=== PATIENT | male | born 1945 | race Caucasian/White ===

== ENCOUNTER → 2017-01-13 | Outpatient (CLI) | payer MEDICARE, BC ==
[~2017-01-13] MED LIST: AMAR2TAB PO; ASPI81 PO; B-COCAP9 PO; GABA300C3 PO; METF-324 PO; ROBA500T PO; VITA-13 PO; ZANA4CAP PO
--- NOTE | 2017-01-16 11:08 | CARDEX ---
CARDIOPULMONARY EXERCISE REPORT Mr. Pineda performed a maximal pulmonary stress test utilizing a step-exercise protocol and monitoring several cardiopulmonary parameters including gas exchange. His overall aerobic capacity is mild to moderately reduced at about 65%. He did develop dyspnea but his chief complaint was leg fatigue and discomfort. He experienced no chest pain or light-headedness. His pulmonary response was mildly abnormal. His O2 saturations ranged from 91% to 93% which for someone with normal lung function is a little low. He did not exhaust his respiratory reserve however, and at the end of exercise his breathing reserve was still 44%. His respiratory rate was rapid though rising from 20 bpm to 56 bpm. The ventilation perfusion ratio at peak exercise was slightly abnormal suggesting some degree of ventilation perfusion mis-matching. The pulmonary vascular capacitance was normal. His cardiac response was characterized by a rapid rise in heart rate to a peak of 97% and this was probably the limiting factor. He had achieved his near maximum heart rate at 60% of his aerobic capacity. His peak O2 pulse, an indirect indicator of stroke volume, was also mildly reduced at 76%. His blood pressure response was normal. No arrhythmia was noted. He had no chest pain. The end-tidal C02 response was at the lower limit of normal. IMPRESSION: In summary, Mr. Pineda does have a mild to slightly moderate reduction in aerobic capacity at about 65%. He experienced significant leg fatigue and some discomfort at the end of exercise and mild to moderate dyspnea. The limiting factor here appears to be cardiovascular in that he achieved 97% of his predicted maximum heart rate but whether this is related to underlying cardiac disease or de-conditioning cannot be determined on the basis of this single study. He has apparently had a previous thorough cardiovascular evaluation which was negative which would suggest it may be due to de-conditioning or, in light of the extreme leg fatigue; there may be a neuromuscular component or a peripheral vascular component. The only significant pulmonary abnormality was lower than expected saturation but it did not drop below 90%. Clinical correlation is required. Garrison ENGLISH M.D. lt 01/16/17
== END ==
LOC: HRSP 13:18
PROVIDERS: ATTEND Internal Medicine
DX: R06.02 Shortness of breath (principal)
CPT/HCPCS: 94621

== ENCOUNTER → 2017-03-17 | Day surgery (SDC) | payer MEDICARE, BC ==
[~2017-03-17] MED LIST changes: +ACETAMINOPHEN/HYDROcodone 325 MG/5 MG TAB ONE; +BUPIVACAINE HCL PF 0.25% 30 ML VIAL ONE; +BUPIVACAINE HCL PF 0.75% 30 ML VIAL ONE; +LACTATED RINGER'S 1000 ML INJ 1,000 ML ONE; +LIDOCAINE 1.5%/EPINEPHrine 1:200,000 PF SOLN 30 ML AMP ONE; +MEPERIDINE HCL 50 MG/ML VIAL ONE; +MIDAZOLAM HCL 5 MG/ML VIAL (1 ML) ONE; +MORPHINE SULFATE 4 MG/ML INJ ONE; +ONDANSETRON HCL 4 MG/2 ML VIAL IV PUSH ONE; +PROPOFOL 200 MG/20 ML AMP IV ONE; +ceFAZolin INJ 1,000 MG VIAL ONE
--- NOTE | 2017-03-17 23:11 | PD.OP ---
cc: Aldo Little Jr., MD Operative Report Date of Surgery: Mar 17, 2017 Preoperative Diagnosis: left 5th metacarpal base fracture Postoperative Diagnosis: same Procedure: closed recduction and pinning left 5th metacarpal base Surgeon: Aldo Little Fire Extinguisher Tester(s): staff Resident Surgeon: none Operation and Findings: Patient was seen and evaluated preoperatively and found to have a RIGHT displaced impacted intra-articular fracture base of the fifth metacarpal. Informed consent was obtained after detailed discussion of risk and benefits including bleeding, infection, injury to arteries, nerves, and blood vessels, weakness and numbness of hand, and tendon rupture. Informed consent was obtained. Patient received IV antibiotics prior to incision. Timeout procedure was performed. Operative extremity was prepped with alcohol followed by Hibiclens and draped usual sterile fashion. A longitudinal dorsal incision overlying the fifth metacarpal shaft was utilized. Dissection taken down to the level of the CMC joint while taking care not to injure the neurovascular bundle. The fracture site was now visualized. Traction was applied. The larger Fracture fragments was manipulated to achieve excellent reduction. The fragment was still too small for screw fixation. Bone clamps were used to hold provisional fixation. Fluoroscopy confirmed appropriate alignment of fracture. A 4.5 K wire was used distally in the shaft of the fourth and fifth metacarpal to maintain traction and reduction. Another 4.5 K wire was used to reduce the main dorsal ulna fracture fragment. Fluoroscopy confirmed appropriate alignment of fracture with well-placed hardware. The wound was thoroughly irrigated with sterile saline. Subcutaneous tissue was closed with 3-0 Vicryl and skin was closed with 3-0 nylon. Sterile dressings were applied with Xeroform, 4 x 4, soft roll, and a well padded splint. Patient was awakened and transferred to recovery room in stable condition Aldo Little Jr., MD Mar 17, 2017 23:11 Antibiotics: none Weight bearing status: NWB Dressing: Do not remove splints/cast. Pin site care qday (when present) Dispo: expected discharge home from PACU today Aldo Little Jr., MD Mar 17, 2017 23:11
== END | disposition home or self-care (01) ==
LOC: ESDC 10:53
PROVIDERS: ATTEND Orthopaedic Surgery
DX: S62.317A Displaced fracture of base of fifth metacarpal bone, left hand, initial encounter for closed fracture (principal)
CPT/HCPCS: 26608; 73120; 76000; J0690; J2175; J2250; J2270; J2405; J7120

== ENCOUNTER 2017-06-02 06:03 | Emergency (ER) | payer MEDICARE, BC ==
[~2017-06-02] VITALS: Ht 193 cm; Wt 104.5 kg
[~2017-06-02 06:03] MED LIST changes: -ACETAMINOPHEN/HYDROcodone 325 MG/5 MG TAB ONE; -BUPIVACAINE HCL PF 0.25% 30 ML VIAL ONE; -BUPIVACAINE HCL PF 0.75% 30 ML VIAL ONE; -LACTATED RINGER'S 1000 ML INJ 1,000 ML ONE; -LIDOCAINE 1.5%/EPINEPHrine 1:200,000 PF SOLN 30 ML AMP ONE; -MEPERIDINE HCL 50 MG/ML VIAL ONE; -MIDAZOLAM HCL 5 MG/ML VIAL (1 ML) ONE; -MORPHINE SULFATE 4 MG/ML INJ ONE; -ONDANSETRON HCL 4 MG/2 ML VIAL IV PUSH ONE; -PROPOFOL 200 MG/20 ML AMP IV ONE; -ceFAZolin INJ 1,000 MG VIAL ONE
[2017-06-02 06:05] VITALS: BP 119/54; PULSE 97; RESP 18; TEMP 98.3; O2SAT 97
[2017-06-02] MEDS ORDERED: URIB118C PO (06:39)
[2017-06-02] MEDS ORDERED: TAMS5CAP PO (06:39)
[2017-06-02] MEDS ORDERED: GLIM2TAB PO (06:39)
[2017-06-02] MEDS ORDERED: MIRA25TA PO (06:39)
[2017-06-02] MEDS ORDERED: GLUC1000 PO (06:39)
[2017-06-02] MEDS ORDERED: LEVO75TA3 PO (06:39)
[2017-06-02] MEDS ORDERED: ASPI81CH CHEW (06:39)
[2017-06-02] MEDS ORDERED: PRED5TAB PO (06:39)
[2017-06-02] MEDS ORDERED: PRAV20TA2 PO (06:39)
[2017-06-02] MEDS ORDERED: SODIUM CHLOR 0.9% 1000 ML INJ 1,000 ML IV SCH (06:40)
[2017-06-02] MEDS ORDERED: SODIUM CHLORIDE 0.9% FLUSH 10 ML FLUSH IV FLUSH PRN (06:45)
[2017-06-02] MEDS ORDERED: ONDANSETRON HCL 4 MG/2 ML VIAL IVP ONE (06:45)
[2017-06-02 07:04] LABS: AUTOMATED NEUTROPHIL # 8.8 TH/MM3 (1.8-7.7); BASOPHIL % 0.4 % (0.0-2.0); EOSINOPHIL # 0.2 TH/MM3 (0-0.4); EOSINOPHIL % 2.1 % (0.0-4.0); HEMATOCRIT 29.8 % (39.0-51.0); LYMPH % 6.3 % (9.0-44.0); LYMPHOCYTE # 0.6 TH/MM3 (1.0-4.8); MEAN CELL VOLUME 98.3 FL (80.0-100.0); MEAN CORPUSCULAR HEMOGLOBIN 31.3 PG (27.0-34.0); MEAN CORPUSCULAR HGB CONC 31.8 % (32.0-36.0); MONO % 5.5 % (0.0-8.0); NEUT % 85.7 % (16.0-70.0); PLATELET COUNT 328 TH/MM3 (150-450); RED BLOOD COUNT 3.04 MIL/MM3 (4.50-5.90); RED CELL DISTRIBUTION WIDTH 17.2 % (11.6-17.2); WHITE BLOOD COUNT 10.2 TH/MM3 (4.0-11.0)
[2017-06-02 07:10] VITALS: BP 119/58; PULSE 82; RESP 20; TEMP 99.9; O2SAT 97
[2017-06-02 07:10] LABS: HEMO FLAGS DIFF FINAL
[2017-06-02 07:12] LABS: CHLORIDE 106 MEQ/L (98-107); POTASSIUM 4.4 MEQ/L (3.5-5.1); SODIUM (NA) 140 MEQ/L (136-145)
[2017-06-02 07:16] LABS: ANION GAP 12 MEQ/L (5-15); BICARBONATE 22.1 MEQ/L (21.0-32.0); BLOOD UREA NITROGEN 32 MG/DL (7-18)
[2017-06-02 07:19] LABS: ALT (GPT) 41 U/L (12-78); AST (GOT) 21 U/L (15-37); GLOMERULAR FILTRATION RATE 43 ML/MIN (>89)
[2017-06-02 07:21] LABS: TOTAL BILIRUBIN ADULT 0.4 MG/DL (0.2-1.0)
[2017-06-02 07:22] LABS: ALKALINE PHOSPHATASE 83 U/L (45-117)
--- NOTE | 2017-06-02 07:37 | PD ---
Physical Exam Date Seen by Provider: Jun 02, 2017 Time Seen by Provider: 07:35 Narrative The patient is a 71-year-old male who presents to emergency department for nausea, vomiting, diarrhea. The patient was initially evaluated by Dr. Martin, please refer to the initial history, physical, diagnostic evaluation, and treatment modality plan. The patient was signed out at 7 AM with laboratory evaluation and reevaluation pending. Data Data Last Documented VS Vital Signs Date Time Temp Pulse Resp B/P (MAP) Pulse Ox O2 Delivery O2 Flow Rate FiO2 06/02/17 09:05 98 18 106/64 (78) 96 Room Air 06/02/17 07:10 99.9 Orders Orders Complete Blood Count With Diff (06/02/17 06:40) Comprehensive Metabolic Panel (06/02/17 06:40) Lipase (06/02/17 06:40) Urinalysis - C+S If Indicated (06/02/17 06:40) Iv Access Insert/Monitor (06/02/17 06:40) Ecg Monitoring (06/02/17 06:40) Oximetry (06/02/17 06:40) Ondansetron Inj (Zofran Inj) (06/02/17 06:45) Sodium Chlor 0.9% 1000 Ml Inj (Ns 1000 M (06/02/17 06:40) Sodium Chloride 0.9% Flush (Ns Flush) (06/02/17 06:45) Troponin I (06/02/17 07:31) Creatine Kinase (Cpk) (06/02/17 07:31) Lactic Acid (06/02/17 07:31) Ct Abd/Pel W/O Iv Contrast (06/02/17 ) Sodium Chlor 0.9% 1000 Ml Inj (Ns 1000 M (06/02/17 08:30) Lactic Acid (06/02/17 11:00) Electrocardiogram (06/02/17 ) Ed Discharge Order (06/02/17 12:13) Labs Laboratory Tests Test 06/02/17 06:10 06/02/17 07:49 06/02/17 08:00 06/02/17 11:36 White Blood Count 10.2 TH/MM3 Red Blood Count 3.04 MIL/MM3 Hemoglobin 9.5 GM/DL Hematocrit 29.8 % Mean Corpuscular Volume 98.3 FL Mean Corpuscular Hemoglobin 31.3 PG Mean Corpuscular Hemoglobin Concent 31.8 % Red Cell Distribution Width 17.2 % Platelet Count 328 TH/MM3 Mean Platelet Volume 8.3 FL Neutrophils (%) (Auto) 85.7 % Lymphocytes (%) (Auto) 6.3 % Monocytes (%) (Auto) 5.5 % Eosinophils (%) (Auto) 2.1 % Basophils (%) (Auto) 0.4 % Neutrophils # (Auto) 8.8 TH/MM3 Lymphocytes # (Auto) 0.6 TH/MM3 Monocytes # (Auto) 0.6 TH/MM3 Eosinophils # (Auto) 0.2 TH/MM3 Basophils # (Auto) 0.0 TH/MM3 CBC Comment DIFF FINAL Differential Comment Blood Urea Nitrogen 32 MG/DL Creatinine 1.60 MG/DL Random Glucose 158 MG/DL Total Protein 7.8 GM/DL Albumin 3.6 GM/DL Calcium Level 9.4 MG/DL Alkaline Phosphatase 83 U/L Aspartate Amino Transf (AST/SGOT) 21 U/L Alanine Aminotransferase (ALT/SGPT) 41 U/L Total Bilirubin 0.4 MG/DL Sodium Level 140 MEQ/L Potassium Level 4.4 MEQ/L Chloride Level 106 MEQ/L Carbon Dioxide Level 22.1 MEQ/L Anion Gap 12 MEQ/L Estimat Glomerular Filtration Rate 43 ML/MIN Total Creatine Kinase 25 U/L Troponin I LESS THAN 0.02 NG/ML Lipase 271 U/L Lactic Acid Level 3.6 mmol/L 1.9 mmol/L Urine Collection Type CLEAN CATCH Urine Color LIGHT-GREEN Urine Turbidity CLEAR Urine pH 6.5 Urine Specific [place] 1.015 Urine Protein NEG mg/dL Urine Glucose (UA) NEG mg/dL Urine Ketones NEG mg/dL Urine Occult Blood NEG Urine Nitrite NEG Urine Bilirubin NEG Urine Leukocyte Esterase NEG Urine WBC 0-2 /hpf Microscopic Urinalysis Comment CULT NOT INDICATED MDM Medical Record Reviewed: Yes Supervised Visit with NITIN: No Interpretation(s) EKG reveals sinus tachycardia with a heart rate of 100. RSR prime in V1 with QRS of 131 ms consistent with right bundle branch block. Q wave noted in lead 3. [id number]. Laboratory Tests Test 06/02/17 06:10 06/02/17 07:49 06/02/17 08:00 White Blood Count 10.2 TH/MM3 Red Blood Count 3.04 MIL/MM3 Hemoglobin 9.5 GM/DL Hematocrit 29.8 % Mean Corpuscular Volume 98.3 FL Mean Corpuscular Hemoglobin 31.3 PG Mean Corpuscular Hemoglobin Concent 31.8 % Red Cell Distribution Width 17.2 % Platelet Count 328 TH/MM3 Mean Platelet Volume 8.3 FL Neutrophils (%) (Auto) 85.7 % Lymphocytes (%) (Auto) 6.3 % Monocytes (%) (Auto) 5.5 % Eosinophils (%) (Auto) 2.1 % Basophils (%) (Auto) 0.4 % Neutrophils # (Auto) 8.8 TH/MM3 Lymphocytes # (Auto) 0.6 TH/MM3 Monocytes # (Auto) 0.6 TH/MM3 Eosinophils # (Auto) 0.2 TH/MM3 Basophils # (Auto) 0.0 TH/MM3 CBC Comment DIFF FINAL Differential Comment Blood Urea Nitrogen 32 MG/DL Creatinine 1.60 MG/DL Random Glucose 158 MG/DL Total Protein 7.8 GM/DL Albumin 3.6 GM/DL Calcium Level 9.4 MG/DL Alkaline Phosphatase 83 U/L Aspartate Amino Transf (AST/SGOT) 21 U/L Alanine Aminotransferase (ALT/SGPT) 41 U/L Total Bilirubin 0.4 MG/DL Sodium Level 140 MEQ/L Potassium Level 4.4 MEQ/L Chloride Level 106 MEQ/L Carbon Dioxide Level 22.1 MEQ/L Anion Gap 12 MEQ/L Estimat Glomerular Filtration Rate 43 ML/MIN Total Creatine Kinase 25 U/L Troponin I LESS THAN 0.02 NG/ML Lipase 271 U/L Lactic Acid Level 3.6 mmol/L Urine Collection Type CLEAN CATCH Urine Color LIGHT-GREEN Urine Turbidity CLEAR Urine pH 6.5 Urine Specific [place] 1.015 Urine Protein NEG mg/dL Urine Glucose (UA) NEG mg/dL Urine Ketones NEG mg/dL Urine Occult Blood NEG Urine Nitrite NEG Urine Bilirubin NEG Urine Leukocyte Esterase NEG Urine WBC 0-2 /hpf Microscopic Urinalysis Comment CULT NOT INDICATED CT of the abdomen and pelvis reveals no acute finding identified on this noncontrast examination to explain the clinical symptoms. There is fluid within the colon consistent with a history of diarrhea. Nonacute findings include hepatic steatosis, cholelithiasis, and mild atherosclerotic disease. Differential Diagnosis Differential diagnosis includes gastroenteritis, viral syndrome, colitis, diverticulitis, partial small bowel obstruction, vagal syndrome, atypical UT. Narrative Course The patient was initially evaluated by Dr. Martin. Please refer to the initial history, physical, diagnostic evaluation, and treatment modality plan. The patient states he had a stent placed 3 weeks ago by his business administrator, Dr. Valverde. The patient states he had a hip replacement and since then has had chronic shortness of breath, has undergone workup for pulmonary embolism with a lung scan, as well as a cardiac workup. However, continues to have intermittent shortness of breath. The patient states he had mild epigastric to lower chest pain this morning that was followed by diaphoresis, nausea, vomiting , then diarrhea which was initially loose and then watery. Patient states he had several episodes of vomiting, received Zofran by Dr. Martin earlier today and his symptoms have significantly improved. He does have a history of previous umbilical hernia repair, however, denies any other abdominal surgeries or history of small bowel obstruction. He denies any recent international travel. Therefore, noncontrast CT of the abdomen and pelvis was performed to evaluate for colitis and partial small bowel obstruction. The patient's creatinine was noted to be 9.5, he states his baseline is 9 and he received 2 units of blood 3 weeks ago tenderness cardiac catheterization when he was low as 6.5. The patient's white count is normal, however, lactic acid was elevated at 3.6. CT the abdomen and pelvis reveals fluid within the colon consistent with a history of diarrhea but no acute clinical findings. The patient does have a gallstone and hepatic steatosis. The patient was reevaluated at 8:45 AM. The patient states his symptoms have significantly improved. The patient will be rehydrated with a total of 2 L of IV fluids and will repeat a lactic acid 11 AM. The patient is comfortable with this plan of care and disposition. The patient's lactic acid came down to 1.9, his symptoms have resolved. The patient will be discharged home with a copy of his labs and a prescription for Zofran. He is advised to return if symptoms worsen or progress. Diagnosis Primary Impression: Gastroenteritis Patient Instructions: General Instructions Additional Instruction: Please provide the patient a copy of his labs and CT results at discharge. Follow-up with her primary physician and your business administrator. Clear liquid diet and advance as tolerated. Return if symptoms worsen or progress. Med/Other Pt SpecificInfo: Prescription(s) given Scripts Ondansetron Odt (Zofran Odt) 4 Mg Tab 4 MG SL Q6HR Y for Nausea/Vomiting, #7 TAB 0 Refills Prov: Tomer Adan MD 06/02/17 Disposition: 01 DISCHARGE HOME Condition: Stable Tomer Adan MD Jun 02, 2017 07:37
--- NOTE | 2017-06-02 07:46 | PD ---
HPI Chief Complaint: GI Complaint Time Seen by Provider: 06:40 Travel History International Travel<30 days: No Contact w/Intl Traveler<30days: No Traveled to known affect area: No History of Present Illness HPI The patient is a 71-year-old male that complains of sudden onset nausea, vomiting and diarrhea at 3:00 this morning. The patient denies any blood in the vomitus or stool. Initially he had some slight pain on the left lower quadrant but this resolved when the diarrhea began. He denies any fever. The patient does have a history of coronary artery disease with stents 1, prostate cancer, diabetes and hypothyroid as well as arthritis. The patient denies any abdominal pain at this time. 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 ) High Cholesterol: Yes Chest Pain: Yes Coronary Artery Disease: Yes (STENTX1) Diabetes: Yes Patient Takes Glucophage: Yes Diminished Hearing: No Glaucoma: No Genitourinary: Yes Hepatitis: No Hiatal Hernia: No Hypertension: No Medical other: Yes (ARTHRITIS) Respiratory: No Thyroid Disease: Yes Tetanus Vaccination: > 5 Years Influenza Vaccination: No Past Surgical History Abdominal Surgery: Yes (HERNIA) Coronary Stent: Yes Ear Surgery: Yes (LEFT EAR SURGERY AN INFANT) Neurologic Surgery: Yes (LUMBAR DISCECTOMY,L4-5,S-1) Pacemaker: No Other Surgery: Yes (LEFT HAND SURGERY) Social History Alcohol Use: No Tobacco Use: No Substance Use: No Allergies-Medications (Allergen,Severity, Reaction): Coded Allergies: No Known Allergies (Verified , 06/02/17) Reported Meds & Prescriptions Reported Meds & Active Scripts Active Reported Myrbetriq (Mirabegron) 25 Mg Tab 25 Mg PO HS Prednisone 5 Mg Tab 5 Mg PO DAILY Uribel (Aiovcnclxlz-Zhmrv-Gfqdjhljd Blue) 1 Cap 1 Cap PO BID Pravastatin 20 Mg Tab 20 Mg PO DAILY Aspirin 81 Mg Chew 81 Mg CHEW DAILY Flomax (Tamsulosin HCl) 0.4 Mg Cap 0.4 Mg PO HS Glucophage (Metformin HCl) 1,000 Mg Tab 1,000 Mg PO BIDPC Glimepiride 2 Mg Tab 2 Mg PO BIDAC Levothyroxine (Levothyroxine Sodium) 75 Mcg Tab 75 Mcg PO DAILY Review of Systems Except as stated in HPI: all other systems reviewed are Neg Physical Exam Narrative GENERAL: The patient appears slightly dehydrated, alert, oriented 3 in moderate apparent distress with his nausea. His vital signs are normal. Later his temperature was recorded at 99.9. SKIN: Focused skin assessment warm/dry. HEAD: Atraumatic. Normocephalic. EYES: Pupils equal and round. No scleral icterus. No injection or drainage. ENT: No nasal bleeding or discharge. Mucous membranes pink and moist. NECK: Trachea midline. No JVD. CARDIOVASCULAR: Regular rate and rhythm. No murmur appreciated. RESPIRATORY: No accessory muscle use. Clear to auscultation. Breath sounds equal bilaterally. GASTROINTESTINAL: Abdomen soft, non-tender. Hepatic and splenic margins not palpable. No guarding or rebound is present. The abdomen actually appears slightly distended but his says that this is the way it normally looks. MUSCULOSKELETAL: No obvious deformities. No clubbing. No cyanosis. No edema. NEUROLOGICAL: Awake and alert. No obvious cranial nerve deficits. Motor grossly within normal limits. Normal speech. PSYCHIATRIC: Appropriate mood and affect; insight and judgment normal. Data Data Last Documented VS Vital Signs Date Time Temp Pulse Resp B/P (MAP) Pulse Ox O2 Delivery O2 Flow Rate FiO2 06/02/17 07:10 Room Air 06/02/17 07:10 99.9 82 20 119/58 (78) 97 Orders Orders Complete Blood Count With Diff (06/02/17 06:40) Comprehensive Metabolic Panel (06/02/17 06:40) Lipase (06/02/17 06:40) Urinalysis - C+S If Indicated (06/02/17 06:40) Iv Access Insert/Monitor (06/02/17 06:40) Ecg Monitoring (06/02/17 06:40) Oximetry (06/02/17 06:40) Ondansetron Inj (Zofran Inj) (06/02/17 06:45) Sodium Chlor 0.9% 1000 Ml Inj (Ns 1000 M (06/02/17 06:40) Sodium Chloride 0.9% Flush (Ns Flush) (06/02/17 06:45) Troponin I (06/02/17 07:31) Creatine Kinase (Cpk) (06/02/17 07:31) Lactic Acid (06/02/17 07:31) Electrocardiogram (06/02/17 ) Ct Abd/Pel W/O Iv Contrast (06/02/17 ) Labs Laboratory Tests Test 06/02/17 06:10 White Blood Count 10.2 TH/MM3 Red Blood Count 3.04 MIL/MM3 Hemoglobin 9.5 GM/DL Hematocrit 29.8 % Mean Corpuscular Volume 98.3 FL Mean Corpuscular Hemoglobin 31.3 PG Mean Corpuscular Hemoglobin Concent 31.8 % Red Cell Distribution Width 17.2 % Platelet Count 328 TH/MM3 Mean Platelet Volume 8.3 FL Neutrophils (%) (Auto) 85.7 % Lymphocytes (%) (Auto) 6.3 % Monocytes (%) (Auto) 5.5 % Eosinophils (%) (Auto) 2.1 % Basophils (%) (Auto) 0.4 % Neutrophils # (Auto) 8.8 TH/MM3 Lymphocytes # (Auto) 0.6 TH/MM3 Monocytes # (Auto) 0.6 TH/MM3 Eosinophils # (Auto) 0.2 TH/MM3 Basophils # (Auto) 0.0 TH/MM3 CBC Comment DIFF FINAL Differential Comment Blood Urea Nitrogen 32 MG/DL Creatinine 1.60 MG/DL Random Glucose 158 MG/DL Total Protein 7.8 GM/DL Albumin 3.6 GM/DL Calcium Level 9.4 MG/DL Alkaline Phosphatase 83 U/L Aspartate Amino Transf (AST/SGOT) 21 U/L Alanine Aminotransferase (ALT/SGPT) 41 U/L Total Bilirubin 0.4 MG/DL Sodium Level 140 MEQ/L Potassium Level 4.4 MEQ/L Chloride Level 106 MEQ/L Carbon Dioxide Level 22.1 MEQ/L Anion Gap 12 MEQ/L Estimat Glomerular Filtration Rate 43 ML/MIN Lipase 271 U/L [facility] Medical Decision Making Medical Screen Exam Complete: Yes Emergency Medical Condition: Yes Medical Record Reviewed: Yes Differential Diagnosis Viral gastritis, bacterial enteritis, small bowel obstruction-unlikely, electrolyte disorder, hyper/hypoglycemia Narrative Course It is now 0750 and the patient is transferred to Dr. Adan. Condition: Stable James Martin MD Jun 02, 2017 07:46
[2017-06-02 07:57] VITALS: BP 136/69; PULSE 85; RESP 16; O2SAT 95
[2017-06-02 08:08] LABS: CREATINE KINASE 25 U/L (39-308)
[2017-06-02 08:13] LABS: BLOOD, URINE NEG (NEG); GLUCOSE,URINE NEG (NEG); KETONE, URINE NEG (NEG); NITRITE,URINE NEG (NEG); PH, URINE 6.5 (5.0-8.5)
[2017-06-02 08:17] LABS: METHOD OF COLLECTION CLEAN CATCH; URINE COLOR LIGHT-GREEN (YELLW/STRAW)
[2017-06-02 08:18] LABS: COMMENT (UR) CULT NOT INDICATED; CULTURE IF INDICATED CULT NOT INDICATED; WBC, URINE 0-2 /hpf (0-5)
[2017-06-02] MEDS ORDERED: SODIUM CHLOR 0.9% 1000 ML INJ 1,000 ML IV ONE (08:30)
--- NOTE | 2017-06-02 08:39 | RADRPT ---
EXAM DATE/TIME: 06/02/2017 08:07 [place] COMPARISON: CT ABDOMEN & PELVIS W CONTRAST, June 24, 2013, 20:10. INDICATIONS : Nausea, vomiting and diarrhea. ORAL CONTRAST: No oral contrast ingested. RADIATION DOSE: 20.49 CTDIvol (mGy) MEDICAL HISTORY : Cardiovascular disease. Hernia. SURGICAL HISTORY : Discectomy, lumbar. Left hip replacement. ENCOUNTER: Initial ACUITY: 1 day PAIN SCALE: 0/10 LOCATION: Abdomen. TECHNIQUE: Volumetric scanning of the abdomen and pelvis was performed. Using automated exposure control and ad justment of the mA and/or kV according to patient size, radiation dose was kept as low as reasonably achievable to obtain optimal diagnostic quality images. DICOM format image data is available electro nically for review and comparison. FINDINGS: LOWER LUNGS: The visualized lower lungs are clear. LIVER: Mild diffuse low density without lesion. There is no dilation of the biliary tree. There is a singl e stone in the gallbladder. No wall thickening or inflammatory changes present. SPLEEN: Normal size without lesion. PANCREAS: Within normal limits. KIDNEYS: Normal in size and shape. There is no mass, stone, or hydronephrosis. There are 2 stable low density lesions in the right kidney measuring up to 12 mm. Both have density measurements characteristic of cysts. A 13 mm low-density lesion in the left mid kidney also is consistent with a simple cyst. ADRENAL GLANDS: Within normal limits. VASCULAR: There is no aortic aneurysm. There is mild atherosclerotic disease. BOWEL/MESENTERY: The stomach, small bowel, and colon demonstrate no acute abnormality. There is no free intraperitone al air or fluid. There is fluid within the colon. ABDOMINAL WALL: Within normal limits. RETROPERITONEUM: There is no lymphadenopathy. BLADDER: No wall thickening or mass. REPRODUCTIVE: Fiducial markers are present within the prostate gland related to prior radiation therapy. INGUINAL: There is no lymphadenopathy or hernia. MUSCULOSKELETAL: There is extensive degenerative change throughout the lumbar spine with right hip osteoarthritis. Lef t hip total arthroplasty hardware is present and causes beam hardening artifact and partial obscurati on of the pelvic structures. CONCLUSION: 1. No acute finding is identified on this noncontrast examination to explain the clinical symptoms. T here is fluid within the colon consistent with the history of diarrhea. 2. Nonacute findings include hepatic steatosis, cholelithiasis, and mild atherosclerotic disease. Niall Holt MD on June 02, 2017 at 8:32 Board Certified Radiologist. This report was verified electronically.
[2017-06-02 09:05] VITALS: BP 106/64; PULSE 98; RESP 18; O2SAT 96
[2017-06-02] MEDS ORDERED: ZOFR4TAB3 SL (12:18)
[2017-06-02 12:25] VITALS: BP 109/58
--- NOTE | 2017-06-02 23:07 | EKG ---
Date Performed: 06/02/2017 Time Performed: 08:29:44 PTAGE: 71 years EKG: SINUS TACHYCARDIA RIGHT BUNDLE BRANCH BLOCK ABNORMAL ECG NO PREVIOUS TRACING DOCTOR: Ford Petersen Interpretating Date/Time 06/02/2017 23:07:03
== END 2017-06-02 12:30 | disposition home or self-care (01) ==
LOC: PHED 06:03
DX: K52.9 Noninfective gastroenteritis and colitis, unspecified (principal); R94.31 Abnormal electrocardiogram [ECG] [EKG]
CPT/HCPCS: 74176; 80053; 81001; 82550; 83605; 83690; 84484; 85025; 93005; 96361; 96374; 99285; J2405; J7030